=== PATIENT | male | born 1985 | race Caucasian/White ===

== ENCOUNTER 2021-04-10 23:29 | Emergency (ER) | payer OTHER ==
[~2021-04-10] VITALS: Ht 167.6 cm; Wt 88.0 kg
[2021-04-11 00:28] LABS: CALCIUM 8.7 mg/dL (8.5-10.1); CREATININE 1.1 mg/dL (0.6-1.3); POTASSIUM 3.7 mmol/L (3.5-5.1)
[2021-04-11] MEDS ORDERED: [UNRECOGNIZED DRUG - OTHER] (00:40)
[2021-04-11] MEDS ORDERED: ZOFRAN (00:41)
[2021-04-11] MEDS ORDERED: NADOLOL 20 MG T20 M1 PO (00:42)
[2021-04-11] MEDS ORDERED: PHENERGAN 25 MG25 M1 PO (01:04)
[2021-04-11 01:16] VITALS: BP 138/86
== END 2021-04-11 01:17 | disposition home or self-care (01) ==
LOC: M.ERS 23:29
PROVIDERS: Emergency Medicine Emergency Medical Services
DX: U07.1 COVID-19 (principal); Z98.890 Other specified postprocedural states; Z79.899 Other long term (current) drug therapy